=== PATIENT | male | born 1990 | race Hispanic/Latino ===

== ENCOUNTER 2023-09-18 21:30 | Emergency (ER) | payer MEDICAID, SELFPAY ==
[2023-09-18 21:32] VITALS: BP 138/77; PULSE 75; RESP 16; TEMP 36.1; O2SAT 100; BMI 30.6
--- NOTE | 2023-09-18 21:46 | EX.ED.DYSGE1 ---
HPI <JIMMIE Ruiz - Last Filed: 09/18/23 22:07> History of Present Illness Chief Complaint: Dental Narrative Narrative: Patient is a 33-year-old male with no significant medical history presents to the emergency department with complaints of pain to the right jaw. Patient states he for the last 3 days has been having worsening pain in the morning when he wakes up. Today after work, he has been having some swelling to his upper jaw and his cheek. Patient denies any fever or chills. Denies any pain with eating. Denies any hot and cold intolerance. PFSH <JIMMIE Ruiz - Last Filed: 09/18/23 22:07> PFSH Medical History no medical history Home Medications ibuprofen 600 mg tablet 600 mg PO Q6H PRN PRN pain #20 TABLETS 09/18/23 [Rx Last Taken Unknown] Allergy/AdvReac Type Severity Reaction Status Date / Time No Known Allergies Allergy Verified 09/18/23 21:32 Surgical History (Updated 09/18/23 @ 21:59 by Grace Harper) Hx of appendectomy Social History Smoking Status: Never smoker ROS <JIMMIE Ruiz - Last Filed: 09/18/23 22:07> ROS ED ROS Narrative Constitutional: Negative for fever, chills, weight loss, weakness Eyes: Negative for vision loss, vision change, double vision ENT: Negative for any sore throat, ear pain, congestion. Positive right-sided upper and lower jaw pain Cardiovascular: Negative for any chest pain, tightness, palpitations Respiratory: Negative for any cough, sputum production, hemoptysis, dyspnea, dyspnea on exertion, orthopnea Gastrointestinal: Negative for any abdominal pain, nausea, vomiting, diarrhea, constipation, blood in stool, blood in vomit : Negative for any urinary frequency, dysuria, retention, blood in urine Muscle skeletal: Negative for any neck pain, back pain Neurological: Negative for any headache, syncope, dizziness Skin: Negative for any rashes, itching, abrasions, lacerations Psychiatric: Negative for any depression, anxiety, stress, suicidal ideation, homicidal ideation Hematologic: Negative for any excessive bruising, easy bleeding EXAM <JIMMIE Ruiz - Last Filed: 09/18/23 22:07> Physical Exam Narrative Exam Narrative: Vital signs reviewed. HEET: Head normocephalic atraumatic, TMs clear bilaterally. Posterior pharynx is clear, moist mucous membranes. Nares clear bilaterally. Patient has generally well-appearing dentition. Patient does have minimal swelling to the right upper jaw, just below the cheek, patient's teeth look well-appearing, there is no evidence of abscess, patient has no pain to a single tooth. Patient has no trismus, no TMJ. Neck: Supple with no lymphadenopathy or tenderness. No signs of meningismus. Cardiac: Regular rate and rhythm no murmurs gallops or rubs, equal peripheral pulses bilaterally. Respiratory: Lungs clear to auscultation bilaterally. No chest tenderness. Abdomen: Soft, nontender, nondistended. No abdominal bruit or pulsatile masses. No hepatosplenomegaly Extremities: No peripheral edema, no signs of gross trauma or deformity. Active full range of motion of all extremities. Neuro: Cranial nerves II through XII intact, no focal neurological deficits. Skin: Clean dry and intact with no rash, purpura, petechiae, vesicles or pustules. Backs/flank: No CVA tenderness, no midline spinal tenderness, no deformity. Psych: Normal mood and affect. No SI, HI or acute psychosis. Const Vital Signs: 09/18/23 21:32 Temperature 97 F L Temperature Source Temporal Pulse Rate 75 Respiratory Rate 16 Blood Pressure 138/77 H Blood Pressure Mean 97 Pulse Ox 100 <Dr. Alexi Browne DO - Last Filed: 09/18/23 22:12> Physical Exam Const Vital Signs: 09/18/23 21:32 Temperature 97 F L Temperature Source Temporal Pulse Rate 75 Respiratory Rate 16 Blood Pressure 138/77 H Blood Pressure Mean 97 Pulse Ox 100 [facility] <JIMMIE Ruiz - Last Filed: 09/18/23 22:07> [facility] Treatment and Re-Evaluation :: Differential diagnosis includes however is not limited to: Dental caries, fractured tooth, facial cellulitis, dental abscess Patient appears to be in no obvious distress vital signs are stable. Presenting to the emergency department the right-sided facial swelling, pain to his teeth worse in the morning. Patient has no signs or symptoms of infection, there is no facial cellulitis, periorbital cellulitis, there is no evidence of any dental caries. Patient could have bruxism, patient will be placed on ibuprofen. Patient struck to ice, he will follow-up outpatient. If he gets any more redness, fever or chills he return here. Patient stable for discharge. <Dr. Alexi Browne, DO - Last Filed: 09/18/23 22:12> [facility] Narrative Medical decision making narrative: Differential diagnosis includes however is not limited to: Dental caries, fractured tooth, facial cellulitis, dental abscess Patient appears to be in no obvious distress vital signs are stable. Presenting to the emergency department the right-sided facial swelling, pain to his teeth worse in the morning. Patient has no signs or symptoms of infection, there is no facial cellulitis, periorbital cellulitis, there is no evidence of any dental caries. Patient could have bruxism, patient will be placed on ibuprofen. Patient struck to ice, he will follow-up outpatient. If he gets any more redness, fever or chills he return here. Patient stable for discharge. This patient was seen with a PA/[employer] RELATIONSH[employer] MANAGER Individually assessed they patient including history and physical. I have reviewed everything on the chart that is available and agree with the documentation provided by the PA/SAL[employer] RELATIONSH[employer] MANAGER including discussion about the assessment, treatment plan, discussion, and return precautions. Patient presenting with right-sided facial pain associated with bruxism. He does not have any evidence of infection. There may be some mild signs of swelling but nothing significant. Dentition are intact. Recommended NSAIDs, ice, follow-up with maxillofacial. Return precautions discussed. Impression: 1. Bruxism Lab Data Attestation: I reviewed the patient's lab results. Discharge Plan Triage Chief Complaint: Dental ED Midlevel Provider: Shree Mosher ED Provider: Alexi Browne Dx/Rx/DC Orders Clinical Impression: Facial swelling, Bruxism (teeth grinding) Instructions: Bruxism Prescriptions: New ibuprofen 600 mg tablet 600 mg PO Q6H PRN PRN (Reason: pain) Qty: 20 0RF Primary Care Provider: Care Physician,No Primary Referrals: NOT,DEFINED [Non-Staff] - Activity Restrictions/Additional Instructions: Please use ice, use the anti-inflammatories. If this is continuing, you do need to see an ENT or dentist to get a mouthguard. Return for any signs of redness, fever chills signs of infection. Disposition Disposition: Home, Self Care
[2023-09-18] MEDS: Ibuprofen 600 MG Tablet PO (22:13)
[2023-09-18 22:14] VITALS: BP 128/84; PULSE 79; RESP 16; TEMP 36.8; O2SAT 97
== END 2023-09-18 22:15 | disposition home or self-care (01) ==
PROVIDERS: Emergency Provider Student in an Organized Health Care Education/Training Program; Visit Provider Student in an Organized Health Care Education/Training Program
DX: R22.0 Localized swelling, mass and lump, head (principal)
CPT/HCPCS: 99282